=== PATIENT | male | born 1950 | race Caucasian/White ===

== ENCOUNTER → 2017-01-28 | Day surgery (SDC) | payer MEDICARE, OTHER ==
[~2017-01-28] VITALS: Ht 167.6 cm; Wt 72.6 kg
[~2017-01-28] MED LIST: AMBIEN10 MG PO; CIPRO500 MG PO; COLACE100 MG PO; IBUPROFEN400 MG PO; PERCOCET 10-321 EACH PO
== END | disposition home or self-care (01) ==
LOC: SDC 06:02
DX: C61 Malignant neoplasm of prostate (principal); N32.0 Bladder-neck obstruction; N35.9 Urethral stricture, unspecified; K21.9 Gastro-esophageal reflux disease without esophagitis; Z87.442 Personal history of urinary calculi; Z88.8 Allergy status to other drugs, medicaments and biological substances; Z90.49 Acquired absence of other specified parts of digestive tract; Z98.890 Other specified postprocedural states
CPT/HCPCS: J1580; J2704; Q9967

== ENCOUNTER 2017-01-31 06:50 | Emergency (ER) | payer MEDICARE, OTHER | END 2017-01-31 10:40 | disposition home or self-care (01) | LOC: ER 06:50 | DX: T78.3XXA Angioneurotic edema, initial encounter (principal); R06.02 Shortness of breath; R68.83 Chills (without fever); T44.6X5A Adverse effect of alpha-adrenoreceptor antagonists, initial encounter; C61 Malignant neoplasm of prostate; Z88.8 Allergy status to other drugs, medicaments and biological substances; Z98.890 Other specified postprocedural states; Z79.899 Other long term (current) drug therapy | CPT/HCPCS: 36415; 96374; 96375; J1200 ==

== ENCOUNTER → 2017-02-03 | Day surgery (SDC) | payer MEDICARE, OTHER | END | disposition home or self-care (01) | LOC: SDCH 11:37 | DX: K44.9 Diaphragmatic hernia without obstruction or gangrene (principal); K21.0 Gastro-esophageal reflux disease with esophagitis; K57.30 Diverticulosis of large intestine without perforation or abscess without bleeding; K64.8 Other hemorrhoids; Z88.1 Allergy status to other antibiotic agents; Z90.49 Acquired absence of other specified parts of digestive tract; Z87.11 Personal history of peptic ulcer disease; Z87.442 Personal history of urinary calculi; Z85.46 Personal history of malignant neoplasm of prostate | CPT/HCPCS: C1726; J1610; J2704 ==